=== PATIENT | male | born 1990 | race Caucasian/White ===

== ENCOUNTER 2021-05-31 10:43 | Emergency (ER) | payer BC, SELFPAY ==
[2021-05-31 10:52] VITALS: BP 138/69; PULSE 91; RESP 28; TEMP 36.8; O2SAT 97
--- NOTE | 2021-05-31 11:48 | ED.URI ---
HPI - URI/Sore Throat General Chief Complaint: Upper Respiratory Infection Stated Complaint: Coughing, Sore Throat, Congestion Time Seen by Provider: 05/31/21 11:48 Source: patient Mode of arrival: ambulatory Limitations: no limitations History of Present Illness HPI Narrative: Itz Ty is a 31 yo male no prior medical history who comes to [facility] for treatment of 7 days of congestion in the sinuses with sinus drainage, sore throat, ear pain. Smokes pack cigarettes a day states that he was getting better that but today he feels weak and fatigued and generally much worse Related Data Allergies Allergy/AdvReac Type Severity Reaction Status Date / Time No Known Allergies Allergy Verified 05/31/21 11:10 Review of Systems Review of Systems: Narrative: CONSTITUTIONAL: Denies fever, chills, sweats. EYES: Denies visual changes, redness, discharge. ENT: Has rhinorrhea, has congestion, has sore throat, has bilateral otalgia. CARDIOVASCULAR: Denies chest pain, palpitations, edema. RESPIRATORY: Denies dyspnea, wheezing, has cough GASTROINTESTINAL: Denies abdominal pain, nausea, vomiting, diarrhea. GENITOURINARY: Denies dysuria, hematuria, abnormal discharge SKIN: Denies rash or itching. NEUROLOGIC: Denies numbness, or focal weakness. PSYCHIATRIC: Denies anxiety or depression. PMFSH Past Medical History Medical History No acute medical problems Family History Family History Other Diabetes mellitus Heart disease High blood cholesterol Hypertension Social History Social History (Updated 05/31/21 @ 11:51 by Lara Disla CNP) Smoking packs per day: 1 Smoking cigarettes per day: 20.0 Smoking status: Current every day smoker Tobacco type: cigarettes Alcohol intake: current Gender identity (if verbalized by the patient): Male Comments At time of signature, I agree with nursing past medical, surgical, social and family history. There is no relevant family history pertinent to the presenting complaint. Exam Narrative: Exam Narrative: GENERAL: This is a well-nourished, well-developed patient, in moderate distress. HEAD: normocephalic, atraumatic. EYES:Sclera clear/white. Vision is grossly intact. EARS: External ears normal, auditory canals erythema and without drainage, TMs normal without perforation. Hearing grossly intact. NOSE: External nose normal with nasal discharge, nares without redness, has rhinorrhea. THROAT: Mucous membranes moist, posterior pharynx erythema NECK: Neck supple, non-tender CARDIOVASCULAR: Regular rate and rhythm without murmurs, gallops, or rubs. RESPIRATORY: Clear to auscultation. Breath sounds equal bilaterally. No wheezes, rales, or rhonchi. GASTROINTESTINAL: Abdomen soft, SKIN: warm, intact with no suspicious lesions or rash, good texture and turgor. NEURO: awake, alert, and oriented to person, place and time. There were no obvious focal neurologic abnormalities. Steady gait EXTREMITIES: Normal range of motion. BACK: Nontender without deformity Course Course Emergency [facility]: [facility] of upper respiratory symptoms sinus congestion sore throat generally feeling fatigued and worse that has been going on for 7 days Started on Mucinex and prednisone and Zithromax Given family history encourage patient to stop smoking Vital Signs Vital signs: Vital Signs Temperature 98.3 F 05/31/21 10:52 Pulse Rate 91 05/31/21 10:52 Respiratory Rate 28 H 05/31/21 10:52 Blood Pressure 138/69 05/31/21 10:52 Pulse Oximetry 97 05/31/21 10:52 Temperature 98.3 F 05/31/21 10:52 Pulse Rate 91 05/31/21 10:52 Respiratory Rate 28 H 05/31/21 10:52 Blood Pressure 138/69 05/31/21 10:52 Pulse Oximetry 97 05/31/21 10:52 MDM - URI/Sore Throat Differential Diagnosis Differential diagnosis: Likely upper respirato
== END 2021-05-31 12:00 | disposition home or self-care (01) ==
PROVIDERS: Emergency Provider Nurse Practitioner
DX: J02.9 Acute pharyngitis, unspecified (principal); J01.20 Acute ethmoidal sinusitis, unspecified; F17.210 Nicotine dependence, cigarettes, uncomplicated
CPT/HCPCS: 99213; G0463

== ENCOUNTER 2021-06-16 11:26 | Emergency (ER) | payer BC, SELFPAY ==
[2021-06-16 11:33] VITALS: BP 141/66; PULSE 85; RESP 16; TEMP 36.5; O2SAT 98
--- NOTE | 2021-06-16 12:22 | ED.DENTAL ---
HPI - Dental/Oral General Chief complaint: Dental/Oral Stated complaint: Possible infected Tooth/Pain in Ear Time Seen by Provider: 06/16/21 12:22 Source: patient, RN notes reviewed and old records reviewed Mode of arrival: ambulatory Limitations: no limitations History of Present Illness HPI Narrative: 31 year old male presents to [facility] with complaints of dental pain to #32 tooth since Wednesday. Patient states that the pain is radiating to his right ear and also to his right jaw, rates his pain a 5/10 states some throbbing pain.Patient reports that he had taken Tylenol an also has use throat spray for his discomfort. Patient denies any difficulty with his swallowing or breathing, is able to open mouth without difficulty. Patient states he has a dentist but he needs any antibiotic before he goes. MD Complaint: tooth pain Location: Tooth # (32) Onset (ago): day(s) (2) Duration: constant Exacerbating factors: chewing Context: other (wisdom tooth) Associated symptoms: ear pain Treatment prior to arrival: oral analgesic Related Data Allergies Allergy/AdvReac Type Severity Reaction Status Date / Time No Known Allergies Allergy Verified 06/16/21 11:42 Review of Systems Review of Systems: Narrative: CONSTITUTIONAL: Denies fever, chills, or sweats. EYES: Denies visual changes, redness, or discharge. ENT: Denies rhinorrhea, congestion, sore throat,positive for right otalgia.Dental pain and swelling to #32 tooth right lower wisdom tooth CARDIOVASCULAR: Denies chest pain, palpitations, or edema. RESPIRATORY: Denies cough or dyspnea. GASTROINTESTINAL: Denies abdominal pain, nausea, vomiting, or diarrhea. GENITOURINARY: Denies dysuria or hematuria. SKIN: Denies rash or itching. MUSCULOSKELETAL: Denies back pain, joint pain, or myalgia. NEUROLOGIC: Denies headache, numbness, or weakness. PSYCHIATRIC: Denies anxiety or depression. All systems reviewed & are unremarkable except as noted in HPI and below PMFSH Past Medical History Medical History (Updated 06/17/21 @ 16:48 by Henny Watson NP) Asthma Elevated cholesterol Surgical History Surgical History (Updated 06/17/21 @ 16:48 by Henny Watson NP) History of surgery on upper extremity left when child Family History Family History (Updated 06/17/21 @ 16:49 by Henny Watson NP) Father Hypertension Malignant neoplasm of prostate Mother Hypertension Ovarian cancer Diabetes mellitus Heart disease Grandparent Heart disease Other High blood cholesterol Social History Social History (Updated 06/17/21 @ 16:46 by Henny Watson NP) Smoking packs per day: 1 Smoking cigarettes per day: 20.0 Smoking status: Current every day smoker Tobacco type: cigarettes Alcohol intake: current Substance use: never Gender identity (if verbalized by the patient): Male Comments At time of signature, agree with nursing past medical, surgical, social and family history. There is no relevant family history pertinent to the presenting complaint Exam Narrative: Exam Narrative: GENERAL: Well-appearing, well-nourished, OBESE and in no acute distress. HEAD: Normocephalic, atraumatic. EYES: PERRLA and EOMI. ENT: Nares clear, no rhinorrhea or epistaxis. Mucous membranes moist.TM's normal with good light reflex, throat pink with no lesions or exudates, no tonsil swelling. No Sal angina noted. Swelling and redness to gum surrounding #32 tooth with no break in tooth or obvious decay noted, wisdom tooth appears to be impacted. NECK: Supple.no lymphadenopathy CHEST: Clear to auscultation. No respiratory distress.SAO2 98% on room air HEART: Regular rate and rhythm. No murmur heard. Normal peripheral pulses. ABDOMEN: Soft, nontender, nondistended, normal active bowel sounds. EXTREMITIES: Normal range of motion. No edema. SKIN: Warm, dry, no rash. NEURO: No focal deficits. Alert and oriented x3. Course Vital Signs Vital signs: Vital Signs Temperatur
== END 2021-06-16 12:37 | disposition home or self-care (01) ==
PROVIDERS: Emergency Provider Registered Nurse; PCP Family Medicine
DX: K08.89 Other specified disorders of teeth and supporting structures (principal); J45.909 Unspecified asthma, uncomplicated; E78.00 Pure hypercholesterolemia, unspecified; F17.210 Nicotine dependence, cigarettes, uncomplicated
CPT/HCPCS: 99213; G0463

== ENCOUNTER 2021-07-09 12:55 | Emergency (ER) | payer BC, SELFPAY ==
[2021-07-09 13:16] VITALS: BP 140/80; PULSE 80; RESP 18; TEMP 36.1; O2SAT 98
--- NOTE | 2021-07-09 14:10 | ED.LOWEXIN ---
HPI - Extremity Injury (Lower) General Chief Complaint: Extremity Injury, Lower Stated Complaint: right ankle injury Time Seen by Provider: 07/09/21 14:10 Source: patient Mode of arrival: ambulatory Limitations: no limitations History of Present Illness HPI Narrative: Itz Ty i a 31 yo male with high cholesterol [facility] who which occurred 10 days ago was seen in the ER with a negative x-ray and was seen by his primary care physician he did return to work note after exam of the ankle Related Data Home Medications Medication Instructions Recorded Confirmed albuterol sulfate INHALATION 07/09/21 fenofibrate nanocrystallized mg PO 07/09/21 Allergies Allergy/AdvReac Type Severity Reaction Status Date / Time No Known Allergies Allergy Verified 07/09/21 13:29 Review of Systems Review of Systems: CONSTITUTIONAL: Denies fever, chills, sweats. EYES: Denies visual changes, redness, discharge. ENT: Denies rhinorrhea, congestion, sore throat, otalgia. CARDIOVASCULAR: Denies chest pain, palpitations, edema. RESPIRATORY: Denies dyspnea, wheezing, cough GASTROINTESTINAL: Denies abdominal pain, nausea, vomiting, diarrhea. GENITOURINARY: Denies dysuria, hematuria, abnormal discharge SKIN: Denies rash or itching. NEUROLOGIC: Denies numbness, or focal weakness. PSYCHIATRIC: Denies anxiety or depression. Right ankle tenderness but would like to return to work PMFSH Past Medical History Medical History Asthma Elevated cholesterol Surgical History Surgical History (Updated 06/17/21 @ 16:48 by Henny Watson NP) History of surgery on upper extremity left when child Family History Family History Father Hypertension Malignant neoplasm of prostate Mother Hypertension Ovarian cancer Diabetes mellitus Heart disease Grandparent Heart disease Other High blood cholesterol Social History Social History Smoking packs per day: 1 Smoking cigarettes per day: 20.0 Smoking status: Current every day smoker Tobacco type: cigarettes Alcohol intake: current Substance use: never Gender identity (if verbalized by the patient): Male Comments At time of signature, I agree with nursing past medical, surgical, social and family history. There is no relevant family history pertinent to the presenting complaint. Exam Narrative: GENERAL: This is a well-nourished, well-developed patient, in no distress HEAD: Sclera clear/white. Vision is grossly intact. EARS: External ears normal, Hearing grossly intact. NOSE: External nose normal without nasal discharge, nares without redness, no rhinorrhea. THROAT: Mucous membranes moist, NECK: Neck supple, CARDIOVASCULAR: Regular rate and rhythm without murmurs, gallops, or rubs. RESPIRATORY: Clear to auscultation. Breath sounds equal bilaterally. No wheezes, rales, or rhonchi. GASTROINTESTINAL: Abdomen soft, SKIN: warm, intact with no suspicious lesions or rash, good texture and turgor. NEURO: awake, alert, and oriented to person, place and time. There were no obvious focal neurologic abnormalities. Steady gait EXTREMITIES: Normal range of motion. R ankle swelling on the lateral side although no ecchymosis states just slightly tender with support of work boot he states walking does not hurt much, 2+ pulse BACK: Nontender without deformity Course Course Emergency Course: Patient here after 10 days remote injury We will give return to work note along with Kennedy wrap to right ankle, recommended ibuprofen 600 mg 3 times daily with food if needed for pain Vital Signs Vital signs: Vital Signs Temperature 97 F L 07/09/21 13:16 Pulse Rate 80 07/09/21 13:16 Respiratory Rate 18 07/09/21 13:16 Blood Pressure 140/80 07/09/21 13:16 Pulse Oximetry 98 08/
== END 2021-07-09 14:25 | disposition home or self-care (01) ==
PROVIDERS: Emergency Provider Nurse Practitioner; PCP Family Medicine
DX: S96.911D Strain of unspecified muscle and tendon at ankle and foot level, right foot, subsequent encounter (principal); S93.401D Sprain of unspecified ligament of right ankle, subsequent encounter; X58.XXXD Exposure to other specified factors, subsequent encounter; F17.210 Nicotine dependence, cigarettes, uncomplicated; J45.909 Unspecified asthma, uncomplicated; E78.00 Pure hypercholesterolemia, unspecified
CPT/HCPCS: 99212; G0463